=== PATIENT | female | born 1980 | race Caucasian/White ===

== ENCOUNTER → 2017-03-17 | Outpatient (CLI) | payer OTHER ==
--- NOTE | 2017-03-17 13:07 | RAD ---
CT of the abdomen and pelvis without contrast, 03/17/2017: History: Right-sided pain Noncontrast scans were obtained as requested. The patient also refused to ingest the oral contrast material. The gallbladder is surgically absent. The unopacified liver shows no abnormality. No pancreatic abnormality is seen. The spleen is of normal size. The kidneys show no evidence of calculi or obstruction. No adrenal abnormality is detected. The abdominal aorta is unremarkable. No abdominal or pelvic adenopathy is seen. The uterus is surgically absent. The bowel loops are not dilated. The appendix shows no abnormality. No free fluid or free air is evident in the abdomen or pelvis. IMPRESSION: No acute abdominal or pelvic abnormality is detected. PQRS Compliance Statement: One or more of the following individualized dose reduction techniques were utilized for this examination: 1. Automated exposure control 2. Adjustment of the mA and/or kV according to patient size 3. Use of iterative reconstruction technique
== END | disposition home or self-care (01) ==
LOC: CT 12:07
PROVIDERS: ATTEND Preventive Medicine Occupational Medicine
DX: R10.11 Right upper quadrant pain (principal)
CPT/HCPCS: 74176

== ENCOUNTER → 2017-04-06 | Outpatient (CLI) | payer OTHER ==
[~2017-04-06] MED LIST: GADOBUTROL 10 MMOL/10 ML VIAL IV ONE
--- NOTE | 2017-04-06 13:44 | RAD ---
MR of the abdomen and pelvis with contrast, 04/06/2017: HISTORY: Right flank pain and lump. Imaging of the abdomen and pelvis was performed in axial, coronal and sagittal planes utilizing a variety of sequences including T1-weighted, T2-weighted, T2 fat-suppressed and opposed phase gradient echo sequences. Fat-suppressed T1-weighted dynamic sequences were also obtained following IV injection of 9 cc of the Gadavist contrast agent. Skin markers were placed on the skin surface in the right flank region overlying the area of clinical concern. No underlying mass, fluid collection or area of abnormal enhancement is seen. The liver, spleen, pancreas and both kidneys are unremarkable. No adrenal abnormality is seen. The uterus is surgically absent. No abnormal intra-abdominal mass or abnormal fluid collection is seen. IMPRESSION: No significant abnormality is detected. Electronically signed by: Sukhjinder Tony MD (04/06/2017 1:41 PM) [id number]
== END | disposition home or self-care (01) ==
LOC: MRI 09:04
PROVIDERS: ATTEND Surgery
DX: R19.00 Intra-abdominal and pelvic swelling, mass and lump, unspecified site (principal)
CPT/HCPCS: 72197; 74183; A9585